=== PATIENT | male | born 1955 | race Caucasian/White ===

== ENCOUNTER 2019-11-10 06:49 | Day surgery (SDC) | payer MEDICARE ==
[~2019-11-10] VITALS: Ht 175.3 cm; Wt 72.6 kg
[~2019-11-10 06:49] MED LIST: ADVAIR HFA 230-12 GM INH; BAYER CHEWABLE81 MG PO; CENTRUM MEN'S1 EACH PO; LIPITOR40 MG PO; PLAVIX75 MG PO; PROTONIX40 MG PO; TRIAMTERENE-HC1 EAC3 PO; VENTOLIN HFA [SP8 GM INH
[2019-11-10 07:22] LABS: HEMOGLOBIN 14.7 g/dL (13.5-17.5); LYMPHOCYTES 11.3 % (15-50); MCH 29.7 pg (26.0-34.0); MCHC 32.7 g/dL (31.0-37.0); MCV 90.9 fL (80.0-100.0); MEAN PLATELET VOLUME 10.5 fL (7.4-10.4); NEUTROPHILS 75.8 % (40-80); PLATELET COUNT 246 10x3/uL (130-400); RBC 4.95 10x6/uL (4.20-6.10); RDW 13.1 % (11.5-14.5); WBC 8.9 10x3/uL (4.8-10.8)
[2019-11-10 07:42] LABS: APTT 29.7 SECONDS (22.8-39.4); INR 1.26 (0.85-1.17); PROTIME 15.7 SECONDS (11.6-15.0)
--- NOTE | 2019-11-10 08:20 | NUR ---
0819 DR CANO NOTIFIED OF INR AND PT RESULTS. REQUESTS THAT LOVENOX BE GIVEN PREVIOUS ORDERED.
[2019-11-10 09:01] VITALS: BP 119/80; Ht 175.3 cm; Wt 72.6 kg
[2019-11-10] MEDS ORDERED: HYDROCODON-ACE1 EAC7 PO (10:36)
== END 2019-11-10 12:20 | disposition home or self-care (01) ==
LOC: D.OPS 06:49 → D.PAN 09:15 → D.OPS 12:20
PROVIDERS: Anesthesiology; ATTEND Surgery
DX: C34.90 Malignant neoplasm of unspecified part of unspecified bronchus or lung (principal)